=== PATIENT | female | born 1970 | race African-American/Black ===

== ENCOUNTER 2018-05-16 14:00 | Emergency (ER) | payer MEDICAID, OTHER ==
[~2018-05-16] VITALS: Ht 172.7 cm; Wt 96.6 kg
[2018-05-16 18:32] VITALS: BP 154/96
== END 2018-05-16 19:35 | disposition home or self-care (01) ==
LOC: ER 14:07
DX: H66.90 Otitis media, unspecified, unspecified ear (principal); Z88.5 Allergy status to narcotic agent

== ENCOUNTER 2020-12-05 08:35 | Emergency (ER) | payer MEDICAID ==
[~2020-12-05] VITALS: Ht 172.7 cm; Wt 108.9 kg
[2020-12-05] MEDS ORDERED: methylPREDNISolone SOD SUCC 125 MG/2 ML VL IV ONE (09:15)
[2020-12-05] MEDS ORDERED: SODIUM CHLORIDE 0.9% 1,000 ML IV ONE (09:15)
[2020-12-05] MEDS ORDERED: diphenhdrAMINE HCL 50 MG/1 ML VL IV ONE (09:15)
[2020-12-05] MEDS ORDERED: SODIUM CHLORIDE 0.9% 500 ML IV ONE (09:15)
[2020-12-05] MEDS ORDERED: FAMOTIDINE INJECTION 40 MG in SODIUM CHL 0.9% 100 ML IV ONE (09:15)
[2020-12-05 09:40] LABS: Basophils # (auto) 0 10 ^3/uL (0-0.2); Basophils % (auto) 0.5 % (0.0-2.0); Eosinophils # (auto) 0 10 ^3/uL (0-0.8); Eosinophils % (auto) 0.2 % (0.0-7.0); Hematocrit 33.1 % (36.0-46.0); Hemoglobin 10.7 g/dL (12.2-16.2); Lymphocytes # (auto) 1.1 10 ^3/uL (0.4-5.4); Lymphocytes % (auto) 15.7 % (10.0-50.0); Mean Corpuscular Hemoglobin 30.7 pg (28.0-32.0); Mean Corpuscular Hgb Conc. 32.5 g/dL (32.0-36.0); Mean Corpuscular Volume 94.6 fL (80.0-100.0); Monocytes # (auto) 0.4 10 ^3/uL (0-1.3); Monocytes % (auto) 5.6 % (0.0-12.0); Neutrophils # (auto) 5.7 10 ^3/uL (1.6-8.6); Platelet Count (auto) 275 10^3/uL (140-450); Red Cell Distribution Width 15.2 % (11.8-14.3); White Blood Cell 7.3 10^3/uL (4.4-10.8)
[2020-12-05] MEDS ORDERED: ONDANSETRON HCL 4 MG/2 ML VIAL ONE (09:40)
[2020-12-05 10:08] LABS: Albumin 2.9 g/dL (3.4-5.0); Anion Gap 5 (5-15); Blood Urea Nitrogen 19 mg/dL (7-18); Calcium 8.3 mg/dL (8.5-10.1); Carbon Dioxide 28 mmol/L (21-32); Chloride 111 mmol/L (98-107); Glucose 87 mg/dL (74-106); Magnesium 2.4 mg/dL (1.6-2.6); Potassium 4.1 mmol/L (3.5-5.1); Sodium 144 mmol/L (136-145)
[2020-12-05 10:17] LABS: Alanine Aminotransferase 11 U/L (13-56); Alkaline Phosphatase 44 U/L (45-117); Aspartate Aminotransferase 21 U/L (15-37); BUN/Creatinine Ratio 19.4; Bilirubin, Total 0.2 mg/dL (0.2-1.0); GFR African American 77 mL/min; GFR Non-African American 64 mL/min; Total Protein 6.9 g/dL (6.4-8.2)
[2020-12-05 10:37] LABS: INR 0.96 (0.9-1.15); Partial Thromboplastin Time 26.5 sec (23.0-31.2)
[2020-12-05 10:56] LABS: Urine Bacteria FEW /hpf (None Seen); Urine Blood Negative /uL (Negative); Urine Specific Gravity 1.017 (1.001-1.035); Urine WBC 11 /hpf (0 - 5)
[2020-12-05 12:30] VITALS: BP 130/79
== END 2020-12-05 12:40 | disposition home or self-care (01) ==
LOC: ER 08:35
DX: D64.9 Anemia, unspecified (principal); R07.9 Chest pain, unspecified; L50.0 Allergic urticaria; I10 Essential (primary) hypertension; E44.0 Moderate protein-calorie malnutrition; Z68.36 Body mass index [BMI] 36.0-36.9, adult; Z88.6 Allergy status to analgesic agent; X58.XXXA Exposure to other specified factors, initial encounter
CPT/HCPCS: 36415; 71045; 80053; 81001; 83735; 84484; 85025; 85610; 85730; 93005; 96361; 96365; 96375; 99285; J1200; J2405; J2930; J3490; J7030; J7040